=== PATIENT | male | born 1995 | race Two or more races ===

== ENCOUNTER 2018-01-25 18:46 | Emergency (ER) | payer OTHER ==
[2018-01-25] MEDS ORDERED: IBUPROFEN 600 MG TAB PO ONE (19:22)
[2018-01-25] MEDS ORDERED: NS 1,000 ML IV ONE (20:07)
--- NOTE | 2018-01-25 20:08 | EDPHY ---
H & P Smoking Status: Never smoked Time Seen by Provider: 01/25/18 19:29 HPI/ROS: CHIEF COMPLAINT: Right shoulder pain and syncope HISTORY OF PRESENT ILLNESS: Patient is a 22-year-old male brought here by a friend. Patient reports that he was seen on a couch and his apartment when he was feeling thirsty and realized he had not had anything to drink all day. He got up to get a drink of water and felt dizzy and as he is walking to get a drink of water he passed out and hit his head on the counter top. He has no prior history of syncope. He has no known cardiopulmonary disease. He denies any chest pain or shortness of breath preceding the syncopal event. He reports mild headache but mostly reports right shoulder pain which is where he landed when he fell. Denies any numbness or weakness in his arm. REVIEW OF SYSTEMS: Constitutional: No fever, no chills. Eyes: No discharge. ENT: No sore throat. Cardiovascular: No chest pain, no palpitations. Respiratory: No cough, no shortness of breath. Gastrointestinal: No abdominal pain, no vomiting. Genitourinary: No hematuria. Musculoskeletal: No back pain. Skin: No rashes. Neurological: No headache. (Emmett Lowry) Physical Exam: General Appearance: Alert and no distress. Head: 2 cm right frontal scalp contusion without crepitus. No Fleming signs or raccoon eyes. Eyes: Pupils equal and round no injection. Extraocular muscles intact Respiratory: Chest is nontender, lungs are clear to auscultation. Cardiac: regular rate and rhythm. Gastrointestinal: Abdomen is soft and nontender, no masses, bowel sounds normal. Musculoskeletal: Neck is supple and nontender. Extremities have full range of motion. Full range of motion of the right shoulder. Tenderness to the right AC joint. Neurovascular intact distal to the right shoulder. Skin: No rashes or lesions. Neuro: Cranial nerves grossly intact moving all 4 extremities. (Emmett Lowry) Constitutional: Initial Vital Signs Temperature (C) 36.3 C 01/25/18 18:49 Heart Rate 62 01/25/18 18:49 Respiratory Rate 16 01/25/18 18:49 Blood Pressure 121/78 H 01/25/18 18:49 O2 Sat (%) 99 01/25/18 18:49 O2 Delivery Mode Room Air Allergies/Adverse Reactions: No Known Allergies Allergy (Unverified 01/25/18 19:35) Home Medications: Medication Instructions Recorded NK [No Known Home Meds] 01/25/18 Medical Decision Making - Diagnostics Imaging Results: Imaging Impressions Shoulder X-Ray 01/25/18 18:50 Impression: 1. No evidence of acute fracture. 2. Upper normal right acromioclavicular interval. If AC separation is suspected , consider with and without views. ED Course/Re-evaluation: 22-year-old male here with syncopal event most likely due to dehydration leading to orthostatic syncope. Patient does feel greatly improved after IV fluids. Lab work shows dehydration. EKG shows normal sinus rhythm with no evidence of ischemia or arrhythmia. X-ray of the right shoulder reveals widening of the AC joint consistent with AC joint injury. He states he has a orthopedic surgeon he knows very well who would like to follow up with an aspirin. No indication for CT scan of the head at this time as he is alert and oriented and no signs of skull fracture and denies any significant headache. ( Emmett Lowry) I did not see this patient while he was in the emergency department. However his care was discussed with the PA while the patient was in the department. I agree with treatment plan and management (Frank Morejon) Differential Diagnosis: Cardiac arrhythmia, anemia, pulmonary embolism, ACS, intracranial bleed, skull fracture, cervical spine injury (Emmett Lowry) - Data Points Laboratory Results: Laboratory Results 01/25/18 20:20 01/25/18 20:20 01/25/18 01/25/18 20:20 20:20 WBC 16.25 10^3/uL H 10^3/uL (3.80-9.50) RBC 5.46 10^6/uL 10^6/uL (4.40-6.38) Hgb 17.9 g/dL H g/dL (13.7-17.5) Hct 48.0 % % (40.0-51.0) MCV 87.9 fL fL (81.5-99.8) MCH 32.8 pg pg (27.9-34.1) MCHC 37.3 g/dL H g/dL (32.4-36.7) RDW 11.6 % % (11.5-15.2) Plt Count 243 10^3/uL 10^3/uL (150-400) MPV 11.0 fL fL (8.7-11.7) Neut % (Auto) 83.8 % H % (39.3-74.2) Lymph % (Auto) 10.0 % L % (15.0-45.0) [place] % (Auto) 4.7 % % (4.5-13.0) Eos % (Auto) 0.5 % L % (0.6-7.6) Baso % (Auto) 0.6 % % (0.3-1.7) Nucleat RBC Rel Count 0.0 % % (0.0-0.2) Absolute Neuts (auto) 13.62 10^3/uL H 10^3/uL (1.70-6.50) Absolute Lymphs (auto) 1.62 10^3/uL 10^3/uL (1.00-3.00) Absolute Monos (auto) 0.77 10^3/uL 10^3/uL (0.30-0.80) Absolute Eos (auto) 0.08 10^3/uL 10^3/uL (0.03-0.40) Absolute Basos (auto) 0.10 10^3/uL 10^3/uL (0.02-0.10) Absolute Nucleated RBC 0.00 10^3/uL 10^3/uL (0-0.01) Immature Gran % 0.4 % % (0.0-1.1) Immature Gran # 0.06 10^3/uL 10^3/uL (0.00-0.10) Sodium 136 mEq/L mEq/L (135-145) Potassium 3.5 mEq/L mEq/L (3.3-5.0) Chloride 101 mEq/L mEq/L (97-110) Carbon Dioxide 23 mEq/l mEq/l (22-31) Anion Gap 12 mEq/L mEq/L (8-16) BUN 18 mg/dL mg/dL (7-23) Creatinine 0.9 mg/dL mg/dL (0.7-1.3) Estimated GFR > 60 Glucose 93 mg/dL mg/dL (70-100) Calcium 10.2 mg/dL mg/dL (8.5-10.4) Medications Given: Discontinued Medications Sodium Chloride (Ns) 1,000 mls @ 0 mls/hr IV EDNOW ONE; Wide Open PRN Reason: Protocol Stop: 01/25/18 20:08 Last Admin: 01/25/18 20:18 Dose: 1,000 mls Ibuprofen (Motrin) 600 mg PO EDNOW ONE Stop: 01/25/18 19:23 Last Admin: 01/25/18 19:31 Dose: 600 mg Departure - Departure Disposition: Home, Routine, Self-Care Clinical Impression: Dehydration, Orthostatic syncope, Scalp contusion, Acromioclavicular joint injury Condition: Good Instructions: Syncope (ED) Additional Instructions: The cause of you're passing out is likely dehydration. I do recommend that he follow up their primary care doctor in 2-3 days for re-evaluation. He developed any chest pain, shortness of breath, numbness or weakness or other worsening or worrisome symptoms please return to the ER for further evaluation. Additionally you're right shoulder pain is likely due to and AC joint injury. Wear the shoulder sling as needed for pain. Make sure to range of motion the shoulder and elbow frequently throughout the day. Follow up their primary care doctor in 3-5 days for re-evaluation of the shoulder. Referrals: NONE *PRIMARY CARE P,. [Primary Care Provider] - As per Instructions
[2018-01-25 20:33] LABS: PLATELET COUNT 243 10^3/uL (150-400)
--- NOTE | 2018-01-25 20:38 | CPEKG ---
Test Reason : OPEN Blood Pressure : / mmHG Vent. Rate : 064 BPM Atrial Rate : 061 BPM P-R Int : 150 ms QRS Dur : 088 ms QT Int : 393 ms P-R-T Axes : 064 082 023 degrees QTc Int : 406 ms Sinus arrhythmia Borderline T wave abnormalities Confirmed by Darrius Mc ([id number]) on 01/25/2018 8:38:29 PM Referred By: Confirmed By:Darrius Mc
[2018-01-25 21:25] VITALS: BP 127/69
== END 2018-01-25 21:25 | disposition home or self-care (01) ==
DX: R55 Syncope and collapse (principal); E86.0 Dehydration; S49.91XA Unspecified injury of right shoulder and upper arm, initial encounter; S00.03XD Contusion of scalp, subsequent encounter; W19.XXXA Unspecified fall, initial encounter; Y92.008 Other place in unspecified non-institutional (private) residence as the place of occurrence of the external cause; Y99.8 Other external cause status
CPT/HCPCS: A4565